=== PATIENT | male | born 1990 | race African-American/Black ===

== ENCOUNTER 2016-05-18 10:02 | Emergency (ER) | payer OTHER ==
[~2016-05-18] VITALS: Ht 190.5 cm; Wt 99.8 kg
[2016-05-18 10:04] VITALS: BP 116/68
[2016-05-18] MEDS ORDERED: HYDR-3713 PO ×2 (10:26→11:47)
== END 2016-05-18 10:43 | disposition home or self-care (01) ==
LOC: M ED 10:34
DX: K02.9 Dental caries, unspecified (principal); F17.210 Nicotine dependence, cigarettes, uncomplicated

== ENCOUNTER 2016-06-07 14:15 | Emergency (ER) | payer OTHER ==
[~2016-06-07] VITALS: Ht 190.5 cm; Wt 104.3 kg
[~2016-06-07 14:15] MED LIST: HYDR-3713 PO
[2016-06-07] MEDS ORDERED: KETOROLAC 30 MG/ML VIAL (J1885) IV ONE (15:15)
[2016-06-07] MEDS ORDERED: METOCLOPRAMIDE INJ 10MG/2ML VIAL (J2765) IV ONE (15:15)
[2016-06-07 15:32] LABS: MEAN CORPUSCULAR HEMOGLOBIN 28.9 pg (27.0-33.0); MEAN CORPUSCULAR HGB CONC 34.8 g/dl (32.0-36.5); MEAN CORPUSCULAR VOLUME 83.1 fl (80.0-96.0); RED CELL DISTRIBUTION WIDTH 12.2 % (11.5-14.5); WHITE BLOOD COUNT 8.4 K/mm3 (4.0-10.0)
[2016-06-07 15:44] LABS: EOSINOPHILS 2 % (0-5)
[2016-06-07 15:51] LABS: ANION GAP 6 MEQ/L (8-16); BLOOD UREA NITROGEN 4 MG/DL (7-18); CALCIUM LEVEL 9.1 MG/DL (8.5-10.1); CARBON DIOXIDE LEVEL 30 MEQ/L (21-32); CHLORIDE LEVEL 106 MEQ/L (98-107); CREATININE FOR GFR 0.79 MG/DL (0.70-1.30); ERYTHROCYTE SEDIMENTATION RATE 3 mm/hr (0-15); GLOMERULAR FILTRATION RATE > 60.0 (>60); GLUCOSE, FASTING 88 MG/DL (70-105); SODIUM LEVEL 142 MEQ/L (136-145)
[2016-06-07] MEDS ORDERED: ISOVUE-370 76% 100ML VIAL (Q9967) As Ordered ONE (16:12)
--- NOTE | 2016-06-07 16:40 | REP ---
CT Head without contrast HISTORY: Injury COMPARISON: 11/09/2013 There is no intraparenchymal hemorrhage, acute infarct, mass or midline shift. The ventricular system is normal in appearance. There is no extra cerebral collection. There is no fracture. The visualized sinuses are clear. IMPRESSION: There is no intracranial lesion. Signed by Rey Murphy MD 06/07/2016 04:32 P
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
[2016-06-07 16:52] VITALS: BP 121/71
[2016-06-07] MEDS ORDERED: ZOFR4TAB3 PO (16:52)
[2016-06-07] MEDS ORDERED: MAGICMW MT (16:52)
== END 2016-06-07 17:03 | disposition home or self-care (01) ==
LOC: M ED 14:43
DX: S06.0X0A Concussion without loss of consciousness, initial encounter (principal); W01.0XXA Fall on same level from slipping, tripping and stumbling without subsequent striking against object, initial encounter; Y92.89 Other specified places as the place of occurrence of the external cause; Y93.89 Activity, other specified; Y99.8 Other external cause status; J02.9 Acute pharyngitis, unspecified; B34.9 Viral infection, unspecified; F17.210 Nicotine dependence, cigarettes, uncomplicated
CPT/HCPCS: 70450; 70491; 80048; 85007; 85027; 85652; 86140; 87880; 96374; 96375; 99283; J1885; J2765; Q9967

== ENCOUNTER 2016-07-04 09:52 | Emergency (ER) | payer OTHER ==
[~2016-07-04] VITALS: Ht 190.5 cm; Wt 103.0 kg
[~2016-07-04 09:52] MED LIST changes: +MAGICMW MT; +ZOFR4TAB3 PO
[2016-07-04 09:53] VITALS: BP 123/65
[2016-07-04] MEDS ORDERED: TESS100C PO (10:16)
[2016-07-04] MEDS ORDERED: FLON1SPR (10:16)
[2016-07-04] MEDS ORDERED: ZITHTAB PO (10:16)
== END 2016-07-04 10:33 | disposition home or self-care (01) ==
LOC: M ED 10:16
DX: J06.9 Acute upper respiratory infection, unspecified (principal)

== ENCOUNTER 2016-07-07 18:06 | Emergency (ER) | payer OTHER ==
[~2016-07-07] VITALS: Ht 190.5 cm; Wt 102.5 kg
[~2016-07-07 18:06] MED LIST changes: +FLON1SPR; +TESS100C PO; +ZITHTAB PO
[2016-07-07] MEDS ORDERED: ADACEL/BOOSTRIX VACCINE (DIPHTH/PERTUSS/ACELL/TETANUS)0.5ML SYR (90715) IM ONE (19:00)
[2016-07-07] MEDS ORDERED: NORCO, ANEXSIA 5/325MG TABLET (HYDROcodone/ACETAMINOPHEN) PO ONE (19:00)
[2016-07-07] MEDS ORDERED: LIDOCAINE W/EPINEPHRINE 1% 20ML VIAL SC ONE (19:00)
[2016-07-07 19:40] VITALS: BP 134/82
== END 2016-07-07 19:44 | disposition home or self-care (01) ==
LOC: M ED 18:46
DX: S01.81XA Laceration without foreign body of other part of head, initial encounter (principal); W50.0XXA Accidental hit or strike by another person, initial encounter; Y92.830 Public park as the place of occurrence of the external cause; Y93.67 Activity, basketball; Y99.9 Unspecified external cause status

== ENCOUNTER 2016-07-13 16:13 | Emergency (ER) | payer OTHER ==
[~2016-07-13] VITALS: Ht 190.5 cm; Wt 106.6 kg
[2016-07-13 16:14] VITALS: BP 129/70
== END 2016-07-13 17:09 | disposition home or self-care (01) ==
LOC: M ED 17:07
DX: Z48.02 Encounter for removal of sutures (principal)

== ENCOUNTER 2017-10-29 09:42 | Emergency (ER) | payer OTHER ==
[2017-10-29] MEDS: AUGMENTIN 875 MG TAB PO (10:29)
[2017-10-29] MEDS: IBUPROFEN 800 MG TAB PO (10:30)
== END 2017-10-29 10:31 | disposition home or self-care (01) ==
LOC: M ED 09:42
DX: R51 Headache (principal); K02.9 Dental caries, unspecified; Z72.0 Tobacco use
CPT/HCPCS: 99282

== ENCOUNTER 2018-04-16 11:59 | Emergency (ER) | payer OTHER ==
[~2018-04-16] VITALS: Ht 190.5 cm; Wt 102.3 kg
[~2018-04-16 11:59] MED LIST changes: +AUGM875T28 PO; +MOME50SP NARES; +MUCI600T37 PO; +ZOFR4TAB14 PO; -ZOFR4TAB3 PO
--- NOTE | 2018-04-16 12:31 | REP ---
Clinical: Trauma. Fall. Technique: AP and axial views of the scapula. Findings: Scapula appears intact. Shoulder including the acromioclavicular joint and glenohumeral joint appear intact and normal. Surrounding soft tissues are unremarkable. Impression: No obvious acute injury. Electronically Signed by Theron Schafer MD 04/16/2018 12:23 P
--- NOTE | 2018-04-16 13:16 | REP ---
Clinical: Trauma. Technique: Frontal view of the chest with four views of the left hemithorax. Findings: Frontal view of the chest demonstrates no acute cardiopulmonary process. Multiple views of the left hemithorax demonstrates no obvious acute rib fracture or pathology. Impression: Normal left rib series Electronically Signed by Theron Schafer MD 04/16/2018 01:07 P
[2018-04-16] MEDS ORDERED: KETOROLAC 60 MG/2 ML VIAL (J1885) IM ONE (13:30)
[2018-04-16] MEDS ORDERED: CYCL10TA PO (13:47)
[2018-04-16] MEDS ORDERED: NAPR-885 PO (13:47)
[2018-04-16 13:58] VITALS: BP 137/71
== END 2018-04-16 14:01 | disposition home or self-care (01) ==
LOC: M ED 11:59
DX: S20.212A Contusion of left front wall of thorax, initial encounter (principal); W00.0XXA Fall on same level due to ice and snow, initial encounter; Y92.018 Other place in single-family (private) house as the place of occurrence of the external cause; M25.512 Pain in left shoulder
CPT/HCPCS: 71101; 73010; 96372; 99283; J1885

== ENCOUNTER 2018-09-06 21:30 | Emergency (ER) | payer OTHER ==
[~2018-09-06] VITALS: Ht 190.5 cm; Wt 100.0 kg
[~2018-09-06 21:30] MED LIST changes: +CYCL10TA PO; +NAPR-885 PO
[2018-09-06 21:31] VITALS: BP 138/85
[2018-09-06] MEDS ORDERED: KETOROLAC 60 MG/2 ML VIAL (J1885) IM ONE (22:00)
[2018-09-06] MEDS ORDERED: DERMABOND TOPICAL SKIN ADHESIVE TOP ONE (22:00)
[2018-09-06] MEDS ORDERED: LIDOCAINE W/EPINEPHRINE 1% 20ML VIAL SC ONE (22:00)
[2018-09-06] MEDS ORDERED: NORCO 5/325MG TABLET (BULK FOR ED) PO ONE (22:30)
== END 2018-09-06 22:32 | disposition home or self-care (01) ==
LOC: M ED 21:30
DX: S01.81XA Laceration without foreign body of other part of head, initial encounter (principal); S02.5XXA Fracture of tooth (traumatic), initial encounter for closed fracture; K08.89 Other specified disorders of teeth and supporting structures; W50.0XXA Accidental hit or strike by another person, initial encounter; Y92.9 Unspecified place or not applicable; Y93.67 Activity, basketball; Y99.9 Unspecified external cause status; Z72.0 Tobacco use
CPT/HCPCS: 12011; 96372; 99283; J1885

== ENCOUNTER 2019-11-10 09:43 | Emergency (ER) | payer OTHER, SELFPAY ==
[~2019-11-10] VITALS: Ht 190.5 cm; Wt 119.4 kg
[~2019-11-10 09:43] MED LIST changes: +CYCL-707 PO; -CYCL10TA PO
[2019-11-10 09:44] VITALS: BP 157/102
[2019-11-10] MEDS ORDERED: DERMABOND TOPICAL SKIN ADHESIVE TOP ONE (10:15)
[2019-11-10] MEDS ORDERED: BOOSTRIX/ADACEL VACCINE (DIPHTH/PERTUSS/ACELL/TETANUS) 0.5ML SYR IM ONE (10:15)
[2019-11-10] MEDS ORDERED: KEFL500C17 PO (10:16)
== END 2019-11-10 10:25 | disposition home or self-care (01) ==
LOC: M ED 09:43
DX: S61.412A Laceration without foreign body of left hand, initial encounter (principal); W01.198A Fall on same level from slipping, tripping and stumbling with subsequent striking against other object, initial encounter; Y92.018 Other place in single-family (private) house as the place of occurrence of the external cause

== ENCOUNTER 2020-12-06 21:09 | Emergency (ER) | payer SELFPAY ==
[~2020-12-06] VITALS: Ht 190.5 cm; Wt 121.7 kg
[~2020-12-06 21:09] MED LIST changes: +KEFL500C17 PO
[2020-12-06 21:11] VITALS: BP 141/82
[2020-12-07] MEDS ORDERED: AMOX500C PO (16:47)
== END 2020-12-06 22:43 | disposition left against medical advice (07) ==
LOC: M ED 21:09
DX: Z53.29 Procedure and treatment not carried out because of patient's decision for other reasons (principal)

== ENCOUNTER 2020-12-07 10:22 | Emergency (ER) | payer OTHER, SELFPAY ==
[~2020-12-07] VITALS: Ht 190.5 cm; Wt 100.5 kg
[2020-12-07] MEDS ORDERED: AMOX500C PO (16:47)
[2020-12-07 17:00] VITALS: BP 137/83
== END 2020-12-07 17:10 | disposition home or self-care (01) ==
LOC: M ED 10:22
DX: J06.9 Acute upper respiratory infection, unspecified (principal); H66.91 Otitis media, unspecified, right ear
CPT/HCPCS: 99283; U0003

== ENCOUNTER → 2021-12-26 | Outpatient (CLI) | payer MEDICAID ==
[~2021-12-26] MED LIST changes: +AMOX500C PO; +IBUP80TA PO; -MOME50SP NARES; +NASO50SP3 NARES
== END ==
LOC: M OUTALCOH 10:29
PROVIDERS: ATTEND Psychiatry & Neurology Psychiatry
DX: Z13.39 Encounter for screening examination for other mental health and behavioral disorders (principal)

== ENCOUNTER 2022-01-08 16:00 | Outpatient (RCR) | payer MEDICAID | END 2022-01-14 | LOC: M OUTALCOH 16:00 | PROVIDERS: ATTEND Psychiatry & Neurology Psychiatry | DX: F12.10 Cannabis abuse, uncomplicated (principal); F17.200 Nicotine dependence, unspecified, uncomplicated ==

== ENCOUNTER → 2022-02-13 | Outpatient (RCR) | payer MEDICAID | LOC: M OUTALCOH 01-15 16:00 | PROVIDERS: ATTEND Psychiatry & Neurology Psychiatry | DX: F12.10 Cannabis abuse, uncomplicated (principal); F17.200 Nicotine dependence, unspecified, uncomplicated ==

== ENCOUNTER 2022-02-26 17:34 | Emergency (ER) | payer MEDICAID, OTHER ==
[~2022-02-26] VITALS: Ht 190.5 cm; Wt 127.3 kg
[2022-02-26 17:35] VITALS: BP 129/75
[2022-02-26] MEDS ORDERED: IBUP80TA PO (21:22)
[2022-02-26] MEDS ORDERED: IBUPROFEN 800 MG TAB PO ONE (21:25)
== END 2022-02-26 21:30 | disposition home or self-care (01) ==
LOC: M ED 17:34
DX: M65.811 Other synovitis and tenosynovitis, right shoulder (principal); X58.XXXA Exposure to other specified factors, initial encounter; Y92.89 Other specified places as the place of occurrence of the external cause; Y99.0 Civilian activity done for income or pay; F17.200 Nicotine dependence, unspecified, uncomplicated

== ENCOUNTER 2022-03-01 16:50 | Emergency (ER) | payer OTHER ==
[~2022-03-01] VITALS: Ht 190.5 cm; Wt 147.4 kg
[2022-03-01] MEDS ORDERED: PERCOCET PO (20:34)
[2022-03-01] MEDS ORDERED: MIRA3350 PO (20:34)
[2022-03-01] MEDS ORDERED: OXYCODONE/APAP 5MG/325MG(HOME DOSE PACK) PO ONE (20:35)
[2022-03-01 21:10] VITALS: BP 160/92
== END 2022-03-01 21:16 | disposition home or self-care (01) ==
LOC: M ED 16:50
DX: S46.001A Unspecified injury of muscle(s) and tendon(s) of the rotator cuff of right shoulder, initial encounter (principal); W01.0XXA Fall on same level from slipping, tripping and stumbling without subsequent striking against object, initial encounter; F17.200 Nicotine dependence, unspecified, uncomplicated

== ENCOUNTER 2022-03-12 15:52 | Outpatient (RCR) | payer MEDICAID ==
[~2022-03-12 15:52] MED LIST changes: +MIRA3350 PO; +PERCOCET PO
== END 2022-03-16 ==
LOC: M OUTALCOH 15:52
PROVIDERS: ATTEND Psychiatry & Neurology Psychiatry
DX: F12.10 Cannabis abuse, uncomplicated (principal); F17.200 Nicotine dependence, unspecified, uncomplicated

== ENCOUNTER → 2022-03-21 | Outpatient (CLI) | payer OTHER | LOC: M PLAIMG 16:54 | PROVIDERS: ATTEND Orthopaedic Surgery | DX: M67.813 Other specified disorders of tendon, right shoulder (principal) ==

== ENCOUNTER 2022-04-11 15:21 | Outpatient (RCR) | payer MEDICAID | END 2022-04-16 | LOC: M OUTALCOH 15:21 | PROVIDERS: ATTEND Psychiatry & Neurology Psychiatry | DX: F10.20 Alcohol dependence, uncomplicated (principal); F12.10 Cannabis abuse, uncomplicated; F17.200 Nicotine dependence, unspecified, uncomplicated ==

== ENCOUNTER → 2022-08-02 | Outpatient (REF) | payer MEDICAID | LOC: M LAB REF 16:24 | PROVIDERS: ATTEND Physician Assistant | DX: J02.9 Acute pharyngitis, unspecified (principal) ==

== ENCOUNTER → 2022-11-15 | Outpatient (REF) | payer MEDICAID ==
[2022-11-15 12:59] LABS: RSV AMPLIFICATION NEGATIVE (NEGATIVE)
== END ==
LOC: M LAB REF 12:03
PROVIDERS: ATTEND Physician Assistant
DX: B34.9 Viral infection, unspecified (principal)

== ENCOUNTER 2023-02-24 11:41 | Emergency (ER) | payer MEDICAID, OTHER ==
[~2023-02-24] VITALS: Ht 190.5 cm; Wt 127.2 kg
[2023-02-24 16:40] LABS: RSV AMPLIFICATION NEGATIVE (NEGATIVE)
[2023-02-24 16:55] LABS: BASO # 0.1 10^3/uL (0.0-0.2); BASO % 0.5 % (0.0-1.0); EOS # 0.3 10^3/uL (0.0-0.5); HEMATOCRIT 48.5 % (42.0-52.0); LYMPH % 29.7 % (24.0-44.0); MEAN CORPUSCULAR HEMOGLOBIN 29.2 pg (27.0-33.0); MEAN CORPUSCULAR HGB CONC 35.1 g/dl (32.0-36.5); MEAN CORPUSCULAR VOLUME 83.2 fl (80.0-96.0); MONO # 0.5 10^3/uL (0.0-0.8); MONO % 5.2 % (2.0-8.0); NEUTROPHILS # 6.1 10^3/uL (1.5-8.5); NEUTROPHILS % 61.1 % (36.0-66.0); PLATELET COUNT, AUTOMATED 283 10^3/uL (150-450); RED BLOOD COUNT 5.83 10^6/uL (4.30-6.10)
[2023-02-24 17:14] LABS: BLOOD UREA NITROGEN 6 MG/DL (9-23); CALCIUM LEVEL 9.5 MG/DL (8.5-10.1); CARBON DIOXIDE LEVEL 26 MMOL/L (20-31); CHLORIDE LEVEL 107 MMOL/L (98-107); CREATININE FOR GFR 0.66 MG/DL (0.70-1.30); GLOMERULAR FILTRATION RATE > 60.0 (>60); GLUCOSE, FASTING 95 MG/DL (60-100); POTASSIUM SERUM 4.5 MMOL/L (3.5-5.1); SODIUM LEVEL 140 MMOL/L (136-145)
[2023-02-24 17:46] VITALS: BP 144/93; TEMP 99.3; O2SAT 98
== END 2023-02-24 17:47 | disposition home or self-care (01) ==
LOC: M ED 11:41
DX: R04.2 Hemoptysis (principal); G56.00 Carpal tunnel syndrome, unspecified upper limb; F41.9 Anxiety disorder, unspecified; F32.A Depression, unspecified; F17.200 Nicotine dependence, unspecified, uncomplicated; F12.10 Cannabis abuse, uncomplicated

== ENCOUNTER → 2023-04-14 | Outpatient (REF) | payer OTHER ==
[2023-04-14 17:32] LABS: BLOOD UREA NITROGEN 9 MG/DL (9-23); CALCIUM LEVEL 8.9 MG/DL (8.5-10.1); CARBON DIOXIDE LEVEL 30 MMOL/L (20-31); CHLORIDE LEVEL 106 MMOL/L (98-107); CREATININE FOR GFR 0.74 MG/DL (0.70-1.30); GLOMERULAR FILTRATION RATE > 60.0 (>60); GLUCOSE, FASTING 84 MG/DL (60-100); POTASSIUM SERUM 4.1 MMOL/L (3.5-5.1); SODIUM LEVEL 138 MMOL/L (136-145)
[2023-04-14 17:50] LABS: HEMATOCRIT 46.9 % (42.0-52.0); HEMOGLOBIN 16.3 g/dl (13.5-17.5); MEAN CORPUSCULAR HEMOGLOBIN 29.5 pg (27.0-33.0); MEAN CORPUSCULAR HGB CONC 34.8 g/dl (32.0-36.5); MEAN CORPUSCULAR VOLUME 84.8 fl (80.0-96.0); PLATELET COUNT, AUTOMATED 266 10^3/uL (150-450); RED BLOOD COUNT 5.53 10^6/uL (4.30-6.10); WHITE BLOOD COUNT 9.8 10^3/uL (4.0-10.0)
== END ==
LOC: M LAB REF 16:34
PROVIDERS: ATTEND Physician Assistant
DX: R42 Dizziness and giddiness (principal)

== ENCOUNTER 2023-08-17 15:52 | Emergency (ER) | payer OTHER ==
[~2023-08-17] VITALS: Ht 190.5 cm; Wt 127.3 kg
[2023-08-17] MEDS ORDERED: AMLO1TAB24 PO (16:07)
[2023-08-17] MEDS: IBUPROFEN 600MG TAB PO ONE (17:40)
[2023-08-17] MEDS ORDERED: IBUP-1022 PO (17:46)
[2023-08-17 17:52] VITALS: BP 146/96; TEMP 98.3; O2SAT 97
== END 2023-08-17 18:05 | disposition home or self-care (01) ==
LOC: M ED 15:52
DX: M23.91 Unspecified internal derangement of right knee (principal); W50.0XXA Accidental hit or strike by another person, initial encounter; I10 Essential (primary) hypertension; F17.200 Nicotine dependence, unspecified, uncomplicated; F10.10 Alcohol abuse, uncomplicated; F12.10 Cannabis abuse, uncomplicated; Y92.830 Public park as the place of occurrence of the external cause; Y93.61 Activity, american tackle football; Y99.9 Unspecified external cause status; Z79.1 Long term (current) use of non-steroidal anti-inflammatories (NSAID); Z79.899 Other long term (current) drug therapy

== ENCOUNTER → 2023-10-31 | Outpatient (CLI) | payer OTHER ==
[~2023-10-31] MED LIST changes: +AMLO1TAB24 PO; +IBUP-1022 PO
== END ==
LOC: M RAD 15:54
PROVIDERS: ATTEND Orthopaedic Surgery
DX: M23.91 Unspecified internal derangement of right knee (principal); S83.511A Sprain of anterior cruciate ligament of right knee, initial encounter; M25.461 Effusion, right knee; X58.XXXA Exposure to other specified factors, initial encounter; Y92.9 Unspecified place or not applicable; Y93.9 Activity, unspecified; Y99.9 Unspecified external cause status

== ENCOUNTER → 2023-11-25 | Outpatient (CLI) | payer OTHER ==
[2023-11-25 17:02] LABS: BASO # 0.1 10^3/uL (0.0-0.2); BASO % 0.8 % (0.0-1.0); EOS # 0.6 10^3/uL (0.0-0.5); HEMATOCRIT 44.6 % (42.0-52.0); HEMOGLOBIN 16.1 g/dl (13.5-17.5); LYMPH # 3.2 10^3/uL (1.5-5.0); LYMPH % 29.9 % (24.0-44.0); MEAN CORPUSCULAR HEMOGLOBIN 29.7 pg (27.0-33.0); MEAN CORPUSCULAR HGB CONC 36.1 g/dl (32.0-36.5); MEAN CORPUSCULAR VOLUME 82.3 fl (80.0-96.0); MONO # 0.7 10^3/uL (0.0-0.8); MONO % 6.1 % (2.0-8.0); NEUTROPHILS # 6.1 10^3/uL (1.5-8.5); NEUTROPHILS % 56.6 % (36.0-66.0); PLATELET COUNT, AUTOMATED 245 10^3/uL (150-450); RED BLOOD COUNT 5.42 10^6/uL (4.30-6.10); WHITE BLOOD COUNT 10.8 10^3/uL (4.0-10.0)
[2023-11-25 17:16] LABS: INR 1.06; PROTHROMBIN TIME 13.5 SECONDS (12.5-14.5)
[2023-11-25 17:24] LABS: ALBUMIN 4.1 G/DL (3.2-5.2); ALKALINE PHOSPHATASE 80 U/L (46-116); ALT/SGPT 27 U/L (7.0-40); AST/SGOT 15 U/L (<34); BILIRUBIN,TOTAL 0.4 MG/DL (0.3-1.2); BLOOD UREA NITROGEN 10 MG/DL (9-23); CALCIUM LEVEL 9.9 MG/DL (8.5-10.1); CARBON DIOXIDE LEVEL 30 MMOL/L (20-31); CHLORIDE LEVEL 106 MMOL/L (98-107); CREATININE FOR GFR 0.82 MG/DL (0.70-1.30); GLOMERULAR FILTRATION RATE > 60.0 (>60); GLUCOSE, FASTING 83 MG/DL (60-100); POTASSIUM SERUM 4.3 MMOL/L (3.5-5.1); SODIUM LEVEL 139 MMOL/L (136-145); TOTAL PROTEIN 7.5 G/DL (5.7-8.2)
== END ==
LOC: M LAB 16:23
PROVIDERS: ATTEND Orthopaedic Surgery
DX: S83.511A Sprain of anterior cruciate ligament of right knee, initial encounter (principal)

== ENCOUNTER 2023-12-23 06:06 | Day surgery (SDC) | payer OTHER ==
[~2023-12-23] VITALS: Ht 190.5 cm; Wt 124.5 kg
[~2023-12-23 06:06] MED LIST changes: +BENA25CA4 PO; +MELO7.5T35 PO
[2023-12-23] MEDS ORDERED: LR 1,000 ML IV SCH (06:35)
[2023-12-23] MEDS ORDERED: MIDAZOLAM INJ 2MG/2ML VIAL As Ordered ONE (06:56)
[2023-12-23] MEDS ORDERED: fentaNYL 100 MCG/2 ML INJECTION As Ordered ONE (06:57)
[2023-12-23] MEDS ORDERED: ACETAMINOPHEN 1000MG 100ML IV BAG As Ordered ONE (06:59)
[2023-12-23] MEDS ORDERED: LIDOCAINE 2% 100MG/5ML SDV (FOR ANES.) As Ordered ONE (07:00)
[2023-12-23] MEDS ORDERED: ROCURONIUM BROMIDE 50MG/5ML VIAL As Ordered ONE (07:00)
[2023-12-23] MEDS ORDERED: propofoL 200 MG/20 ML VIAL As Ordered ONE (07:00)
[2023-12-23] MEDS ORDERED: ONDANSETRON 4MG 2ML VIAL As Ordered ONE (07:03)
[2023-12-23] MEDS ORDERED: SUGAMMADEX SODIUM 500 MG/5 ML VIAL (BRIDION) As Ordered ONE (07:04)
[2023-12-23] MEDS: ceFAZolin 2 GM/D5W 50 ML IV BAG As Ordered ONE (07:30)
[2023-12-23] MEDS: TRANEXAMIC ACID 100 MG/ML 10ML VIAL As Ordered ONE (07:45)
[2023-12-23] MEDS ORDERED: HYDROmorphone HCL 2MG/ML 1ML VIAL As Ordered ONE (08:16)
[2023-12-23] MEDS: EPINEPHrine 1MG/ML INJ 30ML MD-VIAL As Ordered ONE (08:30)
[2023-12-23] MEDS ORDERED: dexmedeTOMIDine (4MCG/ML)200MCG/50ML BTL (PRECEDEX) As Ordered ONE (09:13)
[2023-12-23] MEDS ORDERED: ESMOLOL INJ 100MG/10ML VIAL As Ordered ONE (10:01)
[2023-12-23] MEDS ORDERED: KETOROLAC 60MG 2ML VIAL As Ordered ONE (11:07)
[2023-12-23] MEDS ORDERED: LABETALOL 100MG/20ML VIAL As Ordered ONE (11:08)
[2023-12-23] MEDS: ONDANSETRON 4MG 2ML VIAL IV PRN (11:41)
[2023-12-23] MEDS: oxyCODONE 5MG TAB PO PRN (11:42)
[2023-12-23] MEDS ORDERED: OXYC1TAB23 PO ×2 (11:42→11:51)
[2023-12-23] MEDS ORDERED: ACET325C5 PO (11:42)
[2023-12-23] MEDS: fentaNYL 100 MCG/2 ML INJECTION IV PRN (11:42)
[2023-12-23] MEDS ORDERED: CEFA500C2 PO (11:42)
[2023-12-23] MEDS: MORPHINE 2 MG/ML 1ML VIAL IV PRN (12:04)
[2023-12-23] MEDS ORDERED: ECOT81TA5 PO (12:16)
[2023-12-23 12:40] VITALS: BP 140/91; TEMP 97.6; O2SAT 94
== END 2023-12-23 13:20 | disposition home or self-care (01) ==
LOC: M SDC 06:06
PROVIDERS: ATTEND Orthopaedic Surgery
DX: S83.511A Sprain of anterior cruciate ligament of right knee, initial encounter (principal); X58.XXXA Exposure to other specified factors, initial encounter; Y92.9 Unspecified place or not applicable; Y93.9 Activity, unspecified; Y99.9 Unspecified external cause status; I10 Essential (primary) hypertension; F17.210 Nicotine dependence, cigarettes, uncomplicated; Z79.899 Other long term (current) drug therapy
CPT/HCPCS: 29888; 73560; C1713; C1762; J0131; J0171; J0665; J0690; J1100; J1171; J1805; J1885; J1920; J2250; J2405; J3010

== ENCOUNTER → 2023-12-26 | Outpatient (CLI) | payer OTHER ==
[~2023-12-26] MED LIST changes: +ACET325C5 PO; +CEFA500C2 PO; +ECOT81TA5 PO; +OXYC1TAB23 PO
== END ==
LOC: M SOG 07:56
PROVIDERS: ATTEND Orthopaedic Surgery
DX: M25.561 Pain in right knee (principal); Z47.89 Encounter for other orthopedic aftercare

== ENCOUNTER 2024-02-06 10:49 | Emergency (ER) | payer OTHER ==
[~2024-02-06] VITALS: Ht 190.5 cm; Wt 127.0 kg
[2024-02-06 12:55] LABS: BASO # 0.1 10^3/uL (0.0-0.2); BASO % 0.7 % (0.0-1.0); EOS # 0.6 10^3/uL (0.0-0.5); EOS % 5.5 % (0.0-3.0); HEMATOCRIT 46.5 % (42.0-52.0); HEMOGLOBIN 16.5 g/dl (13.5-17.5); LYMPH % 26.8 % (24.0-44.0); MEAN CORPUSCULAR HEMOGLOBIN 29.2 pg (27.0-33.0); MEAN CORPUSCULAR HGB CONC 35.5 g/dl (32.0-36.5); MEAN CORPUSCULAR VOLUME 82.3 fl (80.0-96.0); MONO # 0.7 10^3/uL (0.0-0.8); MONO % 6.7 % (2.0-8.0); NEUTROPHILS # 6.6 10^3/uL (1.5-8.5); NEUTROPHILS % 59.8 % (36.0-66.0); PLATELET COUNT, AUTOMATED 309 10^3/uL (150-450); RED BLOOD COUNT 5.65 10^6/uL (4.30-6.10)
[2024-02-06 13:21] LABS: BLOOD UREA NITROGEN 5 MG/DL (9-23); CALCIUM LEVEL 9.6 MG/DL (8.5-10.1); CARBON DIOXIDE LEVEL 31 MMOL/L (20-31); CHLORIDE LEVEL 105 MMOL/L (98-107); CREATININE FOR GFR 0.71 MG/DL (0.70-1.30); GLOMERULAR FILTRATION RATE > 60.0 (>60); GLUCOSE, FASTING 101 MG/DL (60-100); POTASSIUM SERUM 4.1 MMOL/L (3.5-5.1); SODIUM LEVEL 141 MMOL/L (136-145)
[2024-02-06 13:24] LABS: FREE T4 1.28 NG/DL (0.89-1.76)
[2024-02-06 14:06] VITALS: BP 128/84; TEMP 97.5; O2SAT 98
== END 2024-02-06 14:08 | disposition home or self-care (01) ==
LOC: EDBD 10:49 → M ED 10:49
DX: R55 Syncope and collapse (principal); B34.9 Viral infection, unspecified; I10 Essential (primary) hypertension; F32.A Depression, unspecified; F12.10 Cannabis abuse, uncomplicated; Z79.1 Long term (current) use of non-steroidal anti-inflammatories (NSAID); Z79.899 Other long term (current) drug therapy

== ENCOUNTER 2024-03-15 14:15 | Outpatient (RCR) | payer OTHER | END 2024-03-16 | LOC: M PT 14:15 | PROVIDERS: ATTEND Orthopaedic Surgery | DX: S83.111A Anterior subluxation of proximal end of tibia, right knee, initial encounter (principal); W18.30XA Fall on same level, unspecified, initial encounter; Y92.009 Unspecified place in unspecified non-institutional (private) residence as the place of occurrence of the external cause ==

== ENCOUNTER → 2024-04-13 | Outpatient (CLI) | payer OTHER | LOC: M SOG 13:32 | PROVIDERS: ATTEND Orthopaedic Surgery | DX: M25.461 Effusion, right knee (principal); M25.561 Pain in right knee ==

== ENCOUNTER → 2024-04-21 | Outpatient (CLI) | payer OTHER | LOC: M SOG 08:54 | PROVIDERS: ATTEND Orthopaedic Surgery | DX: M25.461 Effusion, right knee (principal); M25.571 Pain in right ankle and joints of right foot ==

== ENCOUNTER → 2024-07-08 | Outpatient (REF) | payer OTHER | LOC: M LAB REF 21:28 | PROVIDERS: ATTEND Physician Assistant | DX: J02.9 Acute pharyngitis, unspecified (principal) ==

== ENCOUNTER → 2024-07-09 | Outpatient (CLI) | payer OTHER | LOC: M SOG 08:23 | PROVIDERS: ATTEND Orthopaedic Surgery | DX: S83.511D Sprain of anterior cruciate ligament of right knee, subsequent encounter (principal); M25.561 Pain in right knee; M79.89 Other specified soft tissue disorders ==

== ENCOUNTER → 2024-07-16 | Outpatient (CLI) | payer OTHER | LOC: M PLARAD 14:55 | PROVIDERS: ATTEND Orthopaedic Surgery | DX: M25.561 Pain in right knee (principal) ==

== ENCOUNTER 2024-09-02 10:23 | Emergency (ER) | payer OTHER ==
[~2024-09-02] VITALS: Ht 190.5 cm; Wt 128.0 kg
[2024-09-02] MEDS: KETOROLAC 30 MG/ML 1 ML VIAL IV ONE (11:56)
[2024-09-02] MEDS ORDERED: NAPR-837 PO (11:58)
[2024-09-02 12:02] VITALS: TEMP 98.6
[2024-09-02 12:08] VITALS: O2SAT 97
[2024-09-02 12:10] VITALS: BP 147/85
[2024-09-02 12:15] LABS: BASO # 0.1 10^3/uL (0.0-0.2); BASO % 0.9 % (0.0-1.0); EOS # 0.6 10^3/uL (0.0-0.5); EOS % 6.9 % (0.0-3.0); LYMPH # 2.4 10^3/uL (1.5-5.0); LYMPH % 28.7 % (24.0-44.0); MEAN CORPUSCULAR HEMOGLOBIN 29.1 pg (27.0-33.0); MEAN CORPUSCULAR HGB CONC 34.8 g/dl (32.0-36.5); MEAN CORPUSCULAR VOLUME 83.6 fl (80.0-96.0); MONO # 0.7 10^3/uL (0.0-0.8); MONO % 8.4 % (2.0-8.0); NEUTROPHILS # 4.6 10^3/uL (1.5-8.5); NEUTROPHILS % 54.7 % (36.0-66.0); PLATELET COUNT, AUTOMATED 310 10^3/uL (150-450); WHITE BLOOD COUNT 8.4 10^3/uL (4.0-10.0)
[2024-09-02 12:20] LABS: ERYTHROCYTE SEDIMENTATION RATE 41 mm/hr (0-15)
[2024-09-06 21:23] LABS: LYME TOTAL ANTIBODY CIA <= 0.90 Index (<=0.90)
== END 2024-09-02 12:17 | disposition home or self-care (01) ==
LOC: M ED 10:23
DX: R22.41 Localized swelling, mass and lump, right lower limb (principal); I10 Essential (primary) hypertension; F17.210 Nicotine dependence, cigarettes, uncomplicated; F12.10 Cannabis abuse, uncomplicated; F10.10 Alcohol abuse, uncomplicated; Z79.899 Other long term (current) drug therapy
CPT/HCPCS: 85025; 85652; 86140; 86618; 96374; 99284; J1885

== ENCOUNTER → 2024-09-16 | Outpatient (CLI) | payer OTHER ==
[~2024-09-16] MED LIST changes: +NAPR-837 PO
== END ==
LOC: M SOG 06:58
PROVIDERS: ATTEND Orthopaedic Surgery
DX: Z53.9 Procedure and treatment not carried out, unspecified reason (principal)

== ENCOUNTER → 2024-10-25 | Outpatient (CLI) | payer OTHER | LOC: M SOG 07:05 | PROVIDERS: ATTEND Orthopaedic Surgery | DX: M25.561 Pain in right knee (principal) ==

== ENCOUNTER → 2025-01-07 | Outpatient (REF) | payer OTHER ==
[~2025-01-07] MED LIST changes: -IBUP-1022 PO; +IBUP600T42 PO
[2025-01-07 18:14] LABS: SOURCE, BODY FLUID RT KNEE
[2025-01-07 19:33] LABS: CRYSTALS, BODY FLUID NONE SEEN (NONE SEEN); SOURCE, BODY FLUID CRYSTALS RT KNEE
== END ==
LOC: M LAB REF 17:06
PROVIDERS: ATTEND Orthopaedic Surgery
DX: M25.461 Effusion, right knee (principal)

== ENCOUNTER → 2025-01-21 | Outpatient (CLI) | payer OTHER | LOC: M SOG 13:26 | PROVIDERS: ATTEND Orthopaedic Surgery | DX: M25.561 Pain in right knee (principal); M25.461 Effusion, right knee ==

== ENCOUNTER → 2025-01-31 | Outpatient (CLI) | payer OTHER ==
[2025-01-31 11:43] LABS: BASO # 0.1 10^3/uL (0.0-0.2); BASO % 0.5 % (0.0-1.0); EOS # 0.8 10^3/uL (0.0-0.5); EOS % 6.3 % (0.0-3.0); LYMPH # 2.3 10^3/uL (1.5-5.0); LYMPH % 19.0 % (24.0-44.0); MONO # 0.8 10^3/uL (0.0-0.8); MONO % 6.6 % (2.0-8.0); NEUTROPHILS # 8.2 10^3/uL (1.5-8.5); NEUTROPHILS % 67.3 % (36.0-66.0); PLATELET COUNT, AUTOMATED 324 10^3/uL (150-450)
[2025-01-31 11:51] LABS: ALT/SGPT 34 U/L (7.0-40); AST/SGOT 19 U/L (<34); CALCIUM LEVEL 9.6 MG/DL (8.5-10.1); CARBON DIOXIDE LEVEL 30 MMOL/L (20-31); CHLORIDE LEVEL 105 MMOL/L (98-107); CREATININE FOR GFR 0.84 MG/DL (0.70-1.30); GLOMERULAR FILTRATION RATE > 90.0 (>60); POTASSIUM SERUM 4.8 MMOL/L (3.5-5.1); SODIUM LEVEL 143 MMOL/L (136-145)
== END ==
LOC: M PLALAB 08:25
PROVIDERS: ATTEND Orthopaedic Surgery
DX: M25.561 Pain in right knee (principal)

== ENCOUNTER → 2025-02-02 | Outpatient (REF) | payer OTHER ==
[2025-02-02 19:09] LABS: SOURCE, BODY FLUID RT KNEE
[2025-02-02 19:12] LABS: CRYSTALS, BODY FLUID NONE SEEN (NONE SEEN); SOURCE, BODY FLUID CRYSTALS RT KNEE
== END ==
LOC: M LAB REF 18:29
PROVIDERS: ATTEND Orthopaedic Surgery
DX: M25.461 Effusion, right knee (principal)